=== PATIENT | male | born 1955 | race Caucasian/White ===

== ENCOUNTER 2022-11-09 18:09 | Emergency (ER) | payer MEDICARE ==
[2022-11-09] MEDS ORDERED: Sodium Chloride 0.9% 10 ML Syringe FLUSH PRN (18:13)
[2022-11-09] MEDS ORDERED: Sodium Chloride 0.9% 1,000 ML IV SCH (18:15)
[2022-11-09 18:23] LABS: BASOPHILS ABSOLUTE AUTO 0.01 K/mm3 (0.01-0.08); BASOPHILS PERCENT AUTO 0.1 % (0.1-1.2); EOSINOPHILS PERCENT AUTO 0 (0.8-7.0); HEMOGLOBIN 11.8 gm/dl (13.7-17.5); IMMATURE GRAN ABSOLUTE AUTO 0.06 K/mm3 (0.00-0.10); IMMATURE GRAN PERCENT AUTO 0.7 % (<=1.0); LYMPHOCYTES ABSOLUTE AUTO 0.39 K/mm3 (1.32-3.57); LYMPHOCYTES PERCENT AUTO 4.4 % (21.8-53.1); MEAN CORPUSCULAR HEMOGLOBIN 36.5 pg (25.7-32.2); MEAN CORPUSCULAR HGB CONC 34.7 g/dl (32.2-35.5); MEAN CORPUSCULAR VOLUME 105.3 fl (79.0-92.2); MEAN PLATELET VOLUME 9.4 fl (9.4-12.3); MONOCYTES ABSOLUTE AUTO 0.26 K/mm3 (0.30-0.82); MONOCYTES PERCENT AUTO 2.9 % (5.3-12.2); NEUTROPHILS ABSOLUTE AUTO 8.24 K/mm3 (1.78-5.38); NEUTROPHILS PERCENT AUTO 91.9 % (34.0-67.9); PLATELET COUNT,PLT 341 K/mm3 (163-337); RED BLOOD CELL COUNT 3.23 M/mm3 (4.63-6.08); WHITE BLOOD CELL COUNT,WBC 8.96 K/mm3 (4.23-9.07)
[2022-11-09 18:41] LABS: INR 1.26; PROTHROMBIN TIME 13.3 SECONDS (9.7-12.0)
[2022-11-09 18:42] LABS: PTT,PARTIAL THROMBOPLSTIN TIME 30.8 SECONDS (21.7-31.4)
[2022-11-09] MEDS ORDERED: Iopamidol 755 Mg/ML 100 ML Bottle IVPUSH ONE (18:47)
[2022-11-09] MEDS ORDERED: Sodium Chloride 0.9% 1,000 ML IV ONE ×3 (18:50→20:00)
[2022-11-09 18:53] LABS: SLIDE REVIEW ABNORMAL SMEAR
[2022-11-09 18:54] LABS: A/G RATIO 0.4 (1-2); ALANINE AMINOTRANSFERASE,ALT 28 U/L (16-63); ALBUMIN 2.2 g/dl (3.4-5.0); ALKALINE PHOSPHATASE 211 U/L (46-116); ANION GAP 20.1 (5-15); BILIRUBIN TOTAL 1.4 mg/dL (0.2-1.0); BLOOD UREA NITROGEN,BUN 20 mg/dL (7-18); BUN/CREATININE RATIO 13.3 (14-18); CALCIUM 8.4 mg/dL (8.5-10.1); CARBON DIOXIDE,CO2 21 mEq/L (21-32); CHLORIDE,CL 91 mEq/L (98-107); CREATININE 1.5 mg/dL (0.7-1.3); ESTIMATED GFR 50 mL/min (>60); GLUCOSE RANDOM 107 mg/dL (70-99); LIPASE 107 U/L (73-393); PROTEIN TOTAL,TP 7.6 g/dl (6.4-8.2); SODIUM,NA 129 mEq/L (136-145)
[2022-11-09 18:56] LABS: LACTIC ACID 7.9 mmol/L (0.4-2.0); TROPONIN I HIGH SENSITIVITY 86 pg/mL (<=76)
[2022-11-09] MEDS ORDERED: Sodium Chloride 0.9% 100 ML IV SCH (19:00)
[2022-11-09 19:04] LABS: ASPARTATE AMNIOTRANSFERASE,AST 79 U/L (15-37); POTASSIUM,K 3.1 mEq/L (3.5-5.1)
[2022-11-09 19:06] LABS: C-REACTIVE PROTEIN 23.7 mg/dL (<1.0)
[2022-11-09] MEDS ORDERED: Magnesium Sulfate/Water 2 GM in Premix Bag 1 BAG IV ONE (19:39)
[2022-11-09] MEDS ORDERED: Potassium Chloride 10 MEQ in Premix Bag 1 BAG IV SCH (19:45)
[2022-11-09] MEDS ORDERED: cefTRIAXone 2 GM in Sodium Chloride 0.9% 100 ML IV ONE (19:52)
[2022-11-09] MEDS ORDERED: Vancomycin 1.25 GM in Sodium Chloride 0.9% 500 ML IV ONE (19:54)
[2022-11-09] MEDS ORDERED: Piperacillin/Tazobactam 4.5 GM in Sodium Chloride 0.9% 100 ML IV ONE (19:54)
[2022-11-09] MEDS ORDERED: Lactated Ringers 1,000 ML IV SCH (20:00)
[2022-11-09] MEDS ORDERED: Lidocaine 1% 10 ML MDV ONE (20:33)
[2022-11-09] MEDS ORDERED: Norepinephrine 4 MG/4 ML SDV ONE (20:41)
[2022-11-09] MEDS ORDERED: Dextrose 5% in Water 250 ML ONE (20:42)
[2022-11-09] MEDS: Norepinephrine 4 MG in Dextrose 5% in Water 246 ML IV SCH ×4 (20:51→20:57)
[2022-11-09 21:50] LABS: BASE EXCESS ARTERIAL -2.8 (-2-2.0); BICARBONATE,ARTERIAL 20.5 meq/L (22.0-26.0); O2 SATURATION ARTERIAL 94.1 % (96.0-97.0); PCO2 ARTERIAL 31.6 mmHg (35.0-45.0)
[2022-11-09 22:05] LABS: CORONAVIRUS COVID-19 NAA NEGATIVE (NEGATIVE); INFLUENZA A NAA NEGATIVE (NEGATIVE); RESPIRATORY SYNCYTIAL VIR NAA NEGATIVE (NEGATIVE)
[2022-11-09] MEDS ORDERED: VANCOmycin 1.25 GM/250 ML 1.25 GM in Premix Bag 1 BAG IV ONE (22:13)
[2022-11-09 22:44] LABS: APPEARANCE,URINE CLEAR (Clear); BILIRUBIN,URINE 1+ (Negative); COLOR,URINE YELLOW (Yellow); GLUCOSE,URINE NEGATIVE (Negative); KETONES,URINE NEGATIVE (Negative); LEUKOCYTE ESTERASE,URINE NEGATIVE (Negative); NITRITE,URINE NEGATIVE (Negative); OCCULT BLOOD,URINE TRACE-LYSED (Negative); PROTEIN,URINE 3+ (Negative)
[2022-11-09 23:32] LABS: BACTERIA,URINE FEW /hpf (FEW); EPITHELIAL CELLS,URINE 0-5 /hpf (0-5); HYALINE CASTS,URINE 20-30 /lpf (0-5); MUCUS,URINE NOT SEEN /hpf (FEW); RBC,URINE 0-5 /hpf (0-5)
== END 2022-11-09 23:59 ==
LOC: JD.ED 18:09
DX: A41.9 Sepsis, unspecified organism (principal); J18.9 Pneumonia, unspecified organism; R65.21 Severe sepsis with septic shock; E87.6 Hypokalemia; E83.42 Hypomagnesemia; Z20.822 Contact with and (suspected) exposure to COVID-19
CPT/HCPCS: 0241U; 36415; 36556; 36600; 51702; 70450; 70496; 70498; 71045; 80053; 80307; 81001; 82803; 83605; 83690; 83735; 84484; 85025; 85610; 85730; 86140; 87040; 93005; 96361; 96365; 96366; 96367; 96368; 99285; J0696; J2543; J3370; J3475; J3480; J3490; J7030; J7060; J7120; Q9967; 93010

== ENCOUNTER 2022-12-05 10:24 | Emergency (ER) | payer MEDICARE ==
[2022-12-05] MEDS ORDERED: Sodium Chloride 0.9% 10 ML Syringe FLUSH PRN ×2 (11:05→11:14)
[2022-12-05] MEDS ORDERED: Albuterol/Ipratropium 3.0-0.5 MG/3 ML Neb Soln NEB ONE (11:06)
[2022-12-05] MEDS ORDERED: Iopamidol 755 Mg/ML 100 ML Bottle IVPUSH ONE (11:14)
[2022-12-05 11:33] LABS: BASOPHILS ABSOLUTE AUTO 0.03 K/mm3 (0.01-0.08); BASOPHILS PERCENT AUTO 0.5 % (0.1-1.2); EOSINOPHILS ABSOLUTE AUTO 0.15 K/mm3 (0.04-0.54); EOSINOPHILS PERCENT AUTO 2.4 (0.8-7.0); HEMATOCRIT 26.2 % (40.1-51.0); HEMOGLOBIN 8.7 gm/dl (13.7-17.5); IMMATURE GRAN ABSOLUTE AUTO 0.02 K/mm3 (0.00-0.10); IMMATURE GRAN PERCENT AUTO 0.3 % (<=1.0); LYMPHOCYTES ABSOLUTE AUTO 1.08 K/mm3 (1.32-3.57); LYMPHOCYTES PERCENT AUTO 17.5 % (21.8-53.1); MEAN CORPUSCULAR HEMOGLOBIN 32.6 pg (25.7-32.2); MEAN CORPUSCULAR HGB CONC 33.2 g/dl (32.2-35.5); MEAN CORPUSCULAR VOLUME 98.1 fl (79.0-92.2); MEAN PLATELET VOLUME 9.7 fl (9.4-12.3); MONOCYTES ABSOLUTE AUTO 0.63 K/mm3 (0.30-0.82); MONOCYTES PERCENT AUTO 10.2 % (5.3-12.2); NEUTROPHILS ABSOLUTE AUTO 4.25 K/mm3 (1.78-5.38); NEUTROPHILS PERCENT AUTO 69.1 % (34.0-67.9); PLATELET COUNT,PLT 88 K/mm3 (163-337); RED BLOOD CELL COUNT 2.67 M/mm3 (4.63-6.08); WHITE BLOOD CELL COUNT,WBC 6.16 K/mm3 (4.23-9.07)
[2022-12-05] MEDS: Sodium Chloride 0.9% 100 ML IV SCH ×2 (11:36→12:29)
[2022-12-05 11:48] LABS: INR 1.37; PROTHROMBIN TIME 14.3 SECONDS (9.7-12.0)
[2022-12-05 11:50] LABS: PTT,PARTIAL THROMBOPLSTIN TIME 39.1 SECONDS (21.7-31.4)
[2022-12-05 11:59] LABS: A/G RATIO 0.5 (1-2); ALBUMIN 1.9 g/dl (3.4-5.0); ANION GAP 9.4 (5-15); BILIRUBIN TOTAL 1.3 mg/dL (0.2-1.0); CALCIUM 7.8 mg/dL (8.5-10.1); EST CRCL DRUG DOSING (CG) 54.57 mL/min; POTASSIUM,K 3.4 mEq/L (3.5-5.1); PROTEIN TOTAL,TP 5.4 g/dl (6.4-8.2)
[2022-12-05 12:18] LABS: SLIDE REVIEW ABNORMAL SMEAR
[2022-12-05] MEDS ORDERED: cefTRIAXone 2 GM in Sodium Chloride 0.9% 100 ML IV ONE (13:26)
== END 2022-12-05 16:36 ==
LOC: JD.ED 10:24
DX: A41.9 Sepsis, unspecified organism (principal); J85.1 Abscess of lung with pneumonia; J93.9 Pneumothorax, unspecified; I25.2 Old myocardial infarction; J44.9 Chronic obstructive pulmonary disease, unspecified; Z87.891 Personal history of nicotine dependence; Z79.82 Long term (current) use of aspirin; Z79.899 Other long term (current) drug therapy; Z79.02 Long term (current) use of antithrombotics/antiplatelets
CPT/HCPCS: 36415; 71275; 80053; 83605; 83880; 84484; 85025; 85610; 85730; 86140; 87040; 93005; 94640; J0696; J3490; Q9967; 96365; 99285-25; J7620-GY